=== PATIENT | male | born 1980 | race African-American/Black ===

== ENCOUNTER 2016-05-06 14:17 | Emergency (ER) | payer OTHER ==
[~2016-05-06] VITALS: Ht 175.3 cm; Wt 88.0 kg
[~2016-05-06 14:17] MED LIST: CYCL-36 PO; DICL50 PO
[2016-05-06 14:31] VITALS: BP 144/84; PULSE 66; RESP 20; TEMP 98.4; O2SAT 96
[2016-05-06 15:24] VITALS: BP 144/84; PULSE 66; RESP 18; TEMP 98.4; O2SAT 96
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
== END 2016-05-06 18:31 | disposition left against medical advice (07) ==
LOC: NEDAMB 14:17
DX: Z53.21 Procedure and treatment not carried out due to patient leaving prior to being seen by health care provider (principal)
CPT/HCPCS: 99284

== ENCOUNTER 2016-05-08 01:25 | Emergency (ER) | payer OTHER ==
[~2016-05-08] VITALS: Ht 175.3 cm; Wt 88.0 kg
[2016-05-08 01:28] VITALS: BP 171/93; PULSE 72; RESP 16; TEMP 98.3; O2SAT 96
[2016-05-08] MEDS ORDERED: TETANUS/DIPHTHERIA TOXOID ADULT 0.5 ML VIAL IM ONE (02:30)
[2016-05-08] MEDS ORDERED: METHOCARBAMOL 500 MG TAB PO ONE (02:30)
[2016-05-08] MEDS ORDERED: NAPROXEN 500 MG TAB PO ONE (02:30)
[2016-05-08] MEDS ORDERED: ROBA750T PO (02:31)
[2016-05-08] MEDS ORDERED: DICL75TA PO (02:31)
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
== END 2016-05-08 02:56 | disposition home or self-care (01) ==
LOC: NEPB 01:25
DX: M54.5 Low back pain (principal); S01.81XA Laceration without foreign body of other part of head, initial encounter; M54.2 Cervicalgia; G89.29 Other chronic pain; V49.50XA Passenger injured in collision with unspecified motor vehicles in traffic accident, initial encounter; Z23 Encounter for immunization
CPT/HCPCS: 90471; 90714